=== PATIENT | female | born 1995 ===

== ENCOUNTER → 2020-10-01 | Outpatient (CLI) | payer OTHER ==
[~2020-10-01] MED LIST: IBU800 M1 PO; MAGNESIUM CITR100 MG PO; OSCAL 500 TAB500 MG; PERCOCET 325 MG1 TA2 PO; PRENATAL; PROTONIX20 MG PO
== END ==
LOC: ZCOL.LAB 08:00
DX: U07.1 COVID-19 (principal)

== ENCOUNTER 2020-10-04 05:30 | Inpatient (IN) | payer OTHER ==
[2020-10-04] VITALS (17 sets, daily range): BP systolic 95–138; BP diastolic 53–88; PULSE 73–113; TEMP 98–99.1
[~2020-10-04] VITALS: Ht 171.4 cm; Wt 88.6 kg
--- NOTE | 2020-10-04 06:30 | NUR ---
0630-Recieved report from DARWIN Benites. Patient with IV to right hand. Denies needs. Assessment complete. Updated on plan of care. Mons puns clipped, Abdomen Cleansed per protocol.
[2020-10-04 06:45] LABS: BASO % 0.3 % (0.0-2.0); EOS # 0.1 (0.0-0.7); EOS % 0.7 % (0-4.0); GRAN # 7.5 (1.4-6.5); GRAN % 76.2 % (42.2-75.2); HEMOGLOBIN 11.5 g/dl (12.5-16.0); LYMPH # 1.6 (1.2-3.4); LYMPH % 16.5 % (20.0-51.0); MEAN CELL VOLUME 83 fl (80.0-100.0); MEAN CORPUSCULAR HEMOGLOBIN 28 pg (27.0-31.0); MEAN CORPUSCULAR HGB CONC 34 g/dl (33.0-37.0); MEAN PLATELET VOLUME 11.4 fl (7.4-10.4); MONO # 0.6 (0.1-0.6); MONO % 5.7 % (1.7-9.3); PLATELET COUNT 197 K/mm3 (130-400); RED BLOOD COUNT 4.13 M/mm3 (4.10-5.30)
[2020-10-04] MEDS ORDERED: MAGNESIUM CITR100 MG PO (07:01)
[2020-10-04] MEDS ORDERED: OSCAL 500 TAB500 MG (07:02)
[2020-10-04] MEDS ORDERED: PROTONIX20 MG PO (07:02)
[2020-10-04] MEDS ORDERED: PRENATAL (07:02)
[2020-10-04 07:09] LABS: HEMATOCRIT 34.1 % (37.0-47.0)
--- NOTE | 2020-10-04 08:30 | NUR ---
0830-Patient to Pac[facility] via bed. A&O x4, VSS, see recovery flow record. Recieved report from DARWIN Grant. Fundal massage firm, Janice MENDIETA. Dr. Perez to room to see patient. Updated on plan of care. Will remain with patient per protocol.
[2020-10-05 00:40] VITALS: BP 115/79; PULSE 94; TEMP 98.4
[2020-10-05 05:35] VITALS: BP 127/81; PULSE 99; TEMP 98.1
[2020-10-05 08:07] VITALS: BP 116/72; PULSE 89; TEMP 98.5
[2020-10-05 11:40] VITALS: BP 121/81; PULSE 90; TEMP 98
--- NOTE | 2020-10-05 18:40 | NUR ---
Report recieved. Updated whiteboard. Expressed concern that the infant was not transferring enough milk during due to no diaper changes "since this morning." Reviewed all output since with patient. Patient explains that "it hurts when he latches so I do not feel he is well." Assisted with latching. Infant interested and latched well. Discussed infant's latch; patient explains that it is still sore with latch. Offered assistance with repositioning and discussed a nipple shield as a protective layer. Reports that "he doesn't like the shield." nursing well. patient would like to continue to breastfeed as is. Further questions denied.
--- NOTE | 2020-10-05 19:30 | NUR ---
Ambulating in the halls at this time. Recieved Covid-19 result as positive. Patient and spouse back to room. Informed of patient's test results. Instructed to wear mask while around staff and to remain in room. Dr. Peace informed of test results.
[2020-10-05 20:00] VITALS: BP 125/86; PULSE 93; TEMP 98
--- NOTE | 2020-10-05 21:00 | NUR ---
Tearful at this time. Reassured patient. Patient apologized for having a positive Covid-19 swab and stated, "I am sorry you have been in here." Assured patient that I did not blame her and that she didn't know. Discussed hand hygeine and proper protective equipment. Discussed with spouse about the expected visitors upon departure from the hospital. Patient stopped crying.
[2020-10-06 07:04] VITALS: BP 114/76; PULSE 86; TEMP 98.1
[2020-10-06] MEDS ORDERED: PERCOCET 325 MG1 TA2 PO (09:49)
[2020-10-06] MEDS ORDERED: IBU800 M1 PO (09:49)
== END 2020-10-06 11:10 | disposition home or self-care (01) | DRG 786 ==
LOC: OB 05:30
PROVIDERS: ADMIT Student in an Organized Health Care Education/Training Program
PROC: 10D00Z1 Extraction of Products of Conception, Low, Open Approach (ICD-10-PCS; principal; 2020-10-04)
DX: O32.1XX0 Maternal care for breech presentation, not applicable or unspecified (principal); U07.1 COVID-19; O98.52 Other viral diseases complicating childbirth; O10.92 Unspecified pre-existing hypertension complicating childbirth; Z3A.39 39 weeks gestation of pregnancy; Z37.0 Single live birth
CPT/HCPCS: J0690; J1885; J2370; J2405; J2590; J7120

== ENCOUNTER → 2020-10-17 | Outpatient (CLI) | payer OTHER ==
--- NOTE | 2020-10-17 15:35 | NUR ---
Pt, Luh Epps, presents for outpatient consult with 13 day old baby boy, Gerald Epps, for concerns about intake and weight gain. Gerald was born on 10/04/2020 by c/section and weighed 6#14.1oz (3120 gms). His discharge weight was 6#3oz (2825 gms) for a 9% loss so they started supplementing him. Gerald was seen by Dr. Michael Forbes on 10/10/20 and weighed 6#5.2oz per pt's report. Today Gerald weighs 7#3.8oz (3284 gms). Pt states her milk did not increase until 5 days post , at that time she discontinued the supplement feeds. Currently Gerald breastfeeds every 2-2.5 hours with pt waking him for feeds. She reports he nurses well even if she wakes him and is frequently content after just one breast. She also notes he is starting to spit up a little bit. Pt also pumps BID, and FOB provides one 2.5-3oz bottle in the evening. Pt handles baby and breast well, reminded to flange baby's lips out after latching. Baby nurses well with audible swallows for almost 20 minutes. After feeding just one side Gerald has a weight gain of 1.9oz (52 gms). He is completely content and will not latch again. Pt encouraged to allow Gerald 3 hours per feeding as his weight gain has been excellent this last week. POC: Breastfeed ad anabell, or upto 3 hours, as pt sees baby continuing to gain weight well, move to complete ad anabell feedings. F/U: With Dr. Michael Forbes as scheduled for one month. Questions invited and answered.
== END ==
LOC: LAC
DX: Z39.1 Encounter for care and examination of lactating mother (principal); Z71.89 Other specified counseling

== ENCOUNTER 2022-02-05 10:01 | Inpatient (IN) | payer BC ==
[~2022-02-05] VITALS: Ht 170.2 cm; Wt 85.0 kg
[2022-02-06] VITALS (18 sets, daily range): BP systolic 102–133; BP diastolic 63–91; PULSE 58–87; TEMP 97.5–99.2
--- NOTE | 2022-02-06 06:15 | NUR ---
PATIENT CARE ASSUMED BY THIS RN. PATIENT ON MONITOR. CARE ONGOING.
[2022-02-06 06:26] LABS: BASO % 0.4 % (0.0-2.0); EOS # 0.1 K/mm3 (0.0-0.7); EOS % 1.4 % (0.0-4.0); GRAN # 4.6 K/mm3 (1.4-6.5); GRAN % 63.3 % (42.2-75.2); LYMPH % 27.9 % (20.0-51.0); MEAN CELL VOLUME 88 fl (80.0-100.0); MEAN CORPUSCULAR HEMOGLOBIN 31 pg (27-31); MEAN CORPUSCULAR HGB CONC 35 g/dl (33.0-37.0); MONO # 0.5 K/mm3 (0.1-0.6); MONO % 6.6 % (1.7-9.3); PLATELET COUNT 154 K/mm3 (130-400); RED BLOOD COUNT 4.23 M/mm3 (4.10-5.30); REDCELL DISTRIBUTION WIDTH-CV 12.7 % (11.5-14.5)
[2022-02-06] MEDS ORDERED: PERCOCET 325 MG1 TA2 PO (08:37)
[2022-02-06] MEDS ORDERED: IBU800 M1 PO (08:37)
--- NOTE | 2022-02-06 11:00 | NUR ---
FUNDAL MASSAGE PERFORMED. LEMON SIZED CLOT EXPRESSED. FUNDUS AT UMBILICUS AND FIRM. BLEEDING NORMAL. PAD CHANGED. VSS. CARE ONGOING.
[2022-02-07 00:10] VITALS: BP 112/63; PULSE 69; TEMP 98.2
[2022-02-07 06:55] VITALS: BP 123/79; PULSE 78; TEMP 98.3
[2022-02-07 16:20] VITALS: BP 121/74; PULSE 83; TEMP 98.3
--- NOTE | 2022-02-07 18:35 | NUR ---
REPORT RECEIVED. PLAN OF CARE REVIEWED. PATIENT RESTING IN BED, EATING DINNER.
[2022-02-07 19:00] VITALS: BP 120/75; PULSE 79; TEMP 98.2
--- NOTE | 2022-02-08 04:12 | NUR ---
Patient care, medication administration and nursing documentation occurred during a Daylight Savings Time Change.
[2022-02-08 07:25] VITALS: BP 111/73; PULSE 79; TEMP 98.1
== END 2022-02-08 12:20 | disposition home or self-care (01) | DRG 787 ==
LOC: OB 02-06 05:26 → LDR 02-06 10:01 → OB 02-06 11:13
PROVIDERS: ADMIT Student in an Organized Health Care Education/Training Program
PROC: 10D00Z1 Extraction of Products of Conception, Low, Open Approach (ICD-10-PCS; principal; 2022-02-06)
DX: O34.211 Maternal care for low transverse scar from previous cesarean delivery (principal); O10.92 Unspecified pre-existing hypertension complicating childbirth; O22.43 Hemorrhoids in pregnancy, third trimester; Z3A.39 39 weeks gestation of pregnancy; Z37.0 Single live birth
CPT/HCPCS: J0690; J1885; J2175; J2405; J2590; J7120

== ENCOUNTER 2024-04-03 18:22 | Inpatient (IN) | payer BC | END 2024-04-13 18:20 | disposition home or self-care (01) | DRG 540 | LOC: OB 04-12 09:37 | PROVIDERS: ADMIT Student in an Organized Health Care Education/Training Program | PROC: 10D00Z1 Extraction of Products of Conception, Low, Open Approach (ICD-10-PCS; principal; 2024-04-12) | DX: O34.211 Maternal care for low transverse scar from previous cesarean delivery (principal); O10.92 Unspecified pre-existing hypertension complicating childbirth; O22.43 Hemorrhoids in pregnancy, third trimester; Z37.0 Single live birth; O99.824 Streptococcus B carrier state complicating childbirth; O99.62 Diseases of the digestive system complicating childbirth; K21.9 Gastro-esophageal reflux disease without esophagitis; O99.214 Obesity complicating childbirth; O69.81X0 Labor and delivery complicated by cord around neck, without compression, not applicable or unspecified; Z3A.39 39 weeks gestation of pregnancy ==

== ENCOUNTER 2024-07-28 14:44 | Outpatient (RCR) | payer BC ==
[~2024-07-28] VITALS: Ht 170.2 cm; Wt 76.9 kg
[2024-07-28] MEDS ORDERED: Iron Sucrose 200 MG in NS 100 ML Over 15 minutes IV ONE (15:00)
[2024-07-28 15:54] VITALS: BP 115/77; PULSE 70; TEMP 98.8
[2024-07-28] MEDS ORDERED: CALCIUM-MAGNES1 EAC1 PO (15:58)
[2024-07-28] MEDS ORDERED: WELLBUTRIN SR150 M1 PO (15:58)
[2024-07-28] MEDS ORDERED: OMEGA-3 1000 MG1 CAP PO (15:59)
[2024-07-28] MEDS ORDERED: VITAMIND3 5000 PO (16:00)
[2024-07-28] MEDS ORDERED: NATURAL IRON65 MG PO (16:00)
== END 2024-07-29 ==
LOC: EUO
DX: D50.9 Iron deficiency anemia, unspecified (principal)
CPT/HCPCS: J1756